=== PATIENT | female | born 1990 | race Caucasian/White ===

== ENCOUNTER 2016-10-05 02:54 | Emergency (ER) | payer OTHER ==
[2016-10-05 03:06] VITALS: BP 143/90
--- NOTE | 2016-10-05 03:37 | ERNOTE ---
Headache ER HPI - Narrative Date of Service: 10/05/16 - General Presenting Symptoms: headache Source: patient - Immun/Allergies/Home Medications Immunizations: IMMUNIZATION HX Immunizations Up to Date Yes History of Influenza Vaccine No Hx Pneumococcal Vaccination No Allergies/Adverse Reactions: Allergies No Known Allergies Allergy (Verified 10/05/16 03:06) Home Medications: HOME MEDICATIONS ALPRAZolam [Xanax] 1 mg PO TID PRN #30 tab 01/03/16 [Last Taken Unknown] Lamotrigine [Lamictal] 150 mg PO DAILY 01/03/16 [Last Taken Unknown] Metformin HCl [Glumetza] 500 mg PO BID 01/03/16 [Last Taken Unknown] risperiDONE [Risperdal] 1 mg PO HS 02/23/16 [Last Taken Unknown] Albuterol Sulfate [Ventolin Hfa] 1 - 2 puff IH Q4H PRN #1 inhaler 08/31/16 [ Last Taken Unknown] Gabapentin 300 mg PO HS 08/31/16 [Last Taken Unknown] Budesonide [Pulmicort] 1 mg IH BID 10/05/16 [Last Taken Unknown] - History of Present Illness Narrative: 25-year-old female states she tripped and fell forward striking her forehead about 24 hours ago. She states that her family had a difficult time waking her up in the morning and since that time she's had nausea visual disturbance and a severe headache. She states she often has a severe headache when her blood sugars are elevated and she lost her glucometer and therefore came to the emergency department early this morning concerned about her blood sugar and her headache Severity Maximum: Present: severe Severity-Currently: Present: severe Headache frequency: Present: frequent headaches Modifying Factors - (Improves): Reports: other - nothing Associated Symptoms: Reports: nausea, vision changes. Denies: vomiting Exacerbated by:: Reports: movement Review of Systems - Review of Systems Constitutional: Present: See HPI EYE: Present: see HPI ENT: Present: no symptoms reported Respiratory: Present: no symptoms reported Cardiology: Present: no symptoms reported Gastrointestinal/Abdominal: Present: no symptoms reported Genitourinary: Present: no symptoms reported Musculoskeletal: Present: no symptoms reported Skin: Present: no symptoms reported Neurological: Present: See HPI Endocrine: Present: no symptoms reported Hematologic/Lymphatic: Present: no symptoms reported Psych: Present: no symptoms reported - Patient's Past Medical History Patient History - Medical: Bipolar, Chronic Pain, Diabetes Type 2, Depression, Hypothyroidism, Obesity, Other Patient History - Cardiac/Respiratory: Asthma, Other Patient History - Cancer: No Hx of Cancer Patient History - Surgical Procedures: Ear Tubes, Other - Family History Mother Family History - Medical: Diabetes Type 2 Family History - Cardiac/Respiratory: Asthma, Hypertension Father Family History - Medical: History Unknown Family History - Cardiac/Respiratory: History Unknown - Social History Living Situations: home Smoking Status: Former smoker Patient requests Smoking Cessation Consult: No Initiate information on Smoking Cessation: No Alcohol Use: none Drug Use: none Physical Exam - Physical Exam General Appearance: Present: alert, moderate distress, obese - morbid obesity Eye Exam: Normal inspection: bilateral, PERRL: bilateral Ears, Nose, Throat: Present: normal ENT inspection, hearing grossly normal, normal pharynx Neck: Present: normal inspection, nontender Respiratory: Present: no respiratory distress, normal breath sounds, no accessory muscle use, chest nontender, lungs clear Cardiovascular/Chest: Present: regular rate, rhythm, no murmur, normal peripheral pulses Gastrointestinal/Abdominal: Present: normal bowel sounds, nontender, nondistended, soft, no organomegaly Rectal Exam: Present: deferred Back Exam: Present: normal inspection, normal range of motion, no CVA tenderness , no vertebral tenderness Extremity Exam: Present: normal inspection, non-tender, no edema, normal range of motion Neurological Exam: Present: alert, oriented, no motor/sensory deficits, normal cerebellar test Skin Exam: Present: normal color, warm/dry, other - small hematoma of forehead Lymphatic Exam: Present: no adenopathy ED Progress - Vital Signs Vital Signs: Vital Signs 10/05/16 10/05/16 02:55 03:00 Temperature 35.9 C L 36.5 C Pulse Rate 108 H Respiratory 20 Rate Blood Pressure 147/81 143/90 O2 Sat by Pulse 96 Oximetry - CT/Ultrasound CT/Ultrasound Narrative: CT head is negative - Progress/Reassessment Chief Complaint: Headache Departure Clinical Impression: Contusion of head Qualifiers: Encounter type: initial encounter Contusion of head detail: other part of head Qualified Code(s): S00.83XA - Contusion of other part of head, initial encounter Cephalgia Qualifiers: Headache type: post-traumatic Headache chronicity pattern: acute headache Intractability: not intractable Qualified Code(s): G44.319 - Acute post- traumatic headache, not intractable - Departure Disposition: Home self-care Condition: Fair Instructions: Head Injury, Adult, [id number]
[2016-10-05] MEDS ORDERED: KETOROLAC TROMETHAMINE 60 MG/2 ML VIAL IM ONE ×2 (03:44→03:45)
[2016-10-05] MEDS ORDERED: MAG HYDROX/ALUMINUM HYD/SIMETH 30 ML UDC PO ONE (03:44)
== END 2016-10-05 04:15 | disposition home or self-care (01) ==
LOC: ER 02:54
DX: S00.83XA Contusion of other part of head, initial encounter (principal); G44.319 Acute post-traumatic headache, not intractable; Z87.891 Personal history of nicotine dependence; W01.10XA Fall on same level from slipping, tripping and stumbling with subsequent striking against unspecified object, initial encounter; F32.9 Major depressive disorder, single episode, unspecified; J45.909 Unspecified asthma, uncomplicated

== ENCOUNTER 2016-12-27 10:27 | Emergency (ER) | payer OTHER ==
[2016-12-27 10:28] VITALS: BP 143/90
--- OUTSIDE RECORDS SUMMARY | 2016-12-27 12:03 | XMS REPORT | Continuity of Care Document ---
:1990 Author Organization [facility] ([facility]) Address [address] [place] [address] Phone [phone] Care Team Providers Name Role Phone [phone], Need To Check Primary Care Provider Unavailable Source Comments This disclosure is being made pursuant to the Care Everywhere program, applicable federal and state laws, and may not contain all informaitonavailable regarding this patient.[facility] ([facility]) Active Allergies and Adverse Reactions Allergen Noted Date Severity Reactions Comments No Known Allergies 01/22/2009 Current Medications Prescription Sig. Disp. Refills Start Date End Date Status albuterol (VENTOLIN Use 2 Puffs by Active HFA) 90 mcg/Actuation inhalation every 6 inhaler hours as needed. budesonide (PULMICORT Use 2 Puffs by 1 Inhaler 12 11/10/2013 Active FLEXHALER) 180 inhalation 2 times mcg/Inhalation daily. Indications: inhaler ASTHMA PREVENTION FLUoxetine 10 mg Take 50 mg by mouth Active capsule 2 times daily. ALPRAZolam 1 mg Take 1 mg by mouth Active tablet 3 times daily as needed. lamoTRIgine 150 mg Take 150 mg by Active tablet mouth daily. risperiDONE 2 mg Take 2 mg by mouth 2 12/25/2015 Active tablet at bedtime. metFORMIN 500 mg Take 500 mg by Active tablet mouth 3 times daily. Active Problems Problem Noted Date Diabetes mellitus 06/08/2014 Asthma 06/08/2014 Pediculosis capitis 11/16/2013 Disruption of wound, unspecified as to episode of care 11/14/2013 Cellulitis 11/12/2013 S/P repeat low transverse section 11/08/2013 Chorioamnionitis, delivered, current hospitalization 11/08/2013 PPROM at 32w2d in current 10/26/2013 History of loss to SIDS 10/26/2013 contraception 06/09/2013 Overview: - Patient desires Nexplanon - On review of records, she became with Implanon in place 07/2009. Bipolar disorder 05/05/2013 Hx of pre-eclampsia in prior , currently 05/05/2013 Hx of PPROM x2 complicated by IUFD x1 05/05/2013 Hx of total placenta previa 05/05/2013 History of delivery for FTP 05/05/2013 22 yo dated by 7-week ultrasound 05/05/2013 Hx of Hypothyroidism 01/20/2011 Overview: - TSH 3.12 at [facility] - Synthroid 50 mcg daily started 06/12.- patient never started this adn has had two normal TSH this so we will hold synthroid - Recheck TSH around 07/27. 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 Has 09/10/20102010 been offered injections and suppositories, not using either due to cost. H/o severe preeclampsia by oliguria in first 09/10/2010 01/22/2011 19 yo @ ___ by 9 week ultrasound, c/w 12 and 20 week 12/26/20092009 ultrasound. [place] of 05/15/2010. Complete previa on 12/26/2009 - follow up ultrasound in 12/05/2009 09/10/2010 weeks History of Section for arrest of dilation - 10/16/20092010 desire repeat s/p Pulmonary Valve Repair - 04/04. Needs SBE prophylaxis 04/26/20092010 Overview: 29 mm Epic bioprosthetic pulmonary valve replacement bilateral branch pulmonary arterioplasty with bovine pericardial patch, March 2009 cHTN: Labetalol 300 mg BID. Baseline PET labs WNL, 24 hour 04/23/20092010 urine 117 mg. Growth q 4 wks, NST at 32 wks Obesity - BMI 46.6 - to have regular growth scans starting at 01/31/2009 24 weeks, cannot assess fundal height Excessive growth affecting management of mother, 08/30/2007 01/31/2009 unspecified as to episode of care with other poor obstetric history(V23.49) 08/17/2007 01/31/2009 Supervision of other normal 05/05/2007 01/31/2009 Congenital cardiovascular disorders of mother, 04/13/2007 01/31/2009 antepartum(648.53) Maternal Tetralogy of Fallot, ECHO at 22 weeks was 03/24/20042010 normal. Maternal echo in 10/2010 stable compared to prior exam. Overview: With hypoplastic branch pulmonary arteries s/p repair. Pt had pulmonary bioprosthetic valve replacement and surgical revision of branch pulmonary arteries in March,. Most Recent Encounters Date Type Specialty Providers Description 12/17/2016 Hospital Encounter Pediatric [facility], Dx: Tetralogy of Cardiology PA-C Nanetteot Wm Jones MD 12/17/2016 Hospital Encounter Pediatric [facility] Quiroz, Chief Comp: Patient Cardiology PA-C Reported Reason For Wm Jones MD Visit 12/17/2016 Hospital Encounter Pediatric Crystal Quiroz, Dx: Tetralogy of Cardiology PA-C Nanetteot Wm Jones MD Immunizations Name Dates Previously Given Next Due Influenza, quadrivalent PF 08/03/2013 MMR 11/10/2013,01/21/2011,01/07/2010 Tdap 10/31/2013,01/21/2011 Social History Tobacco Use Types Packs/Day Years Used Date Current Some Day Smoker Cigarettes 8 1 Quit: 06/06/2010 Smokeless Tobacco: Never Used Tobacco Cessation:Counseling Given: No Comments: Alcohol Use Drinks/Week oz/Week Comments Yes 2 Glasses of wine 4.5 8-10 not with 1 Cans of beer 2 Standard drinks or equivalent Last Filed Vital Signs Vital Sign Reading Time Taken Blood Pressure 138/79 01/22/2016 9:51 AM CDT Pulse 80 01/22/2016 9:51 AM CDT Temperature 36.9 C (98.4 F) 01/22/2016 9:51 AM CDT Respiratory Rate 20 01/22/2016 9:51 AM CDT Height 1.668 m (5' 5.67") 01/22/2016 9:51 AM CDT Weight 161.2 kg (355 lb 6.1 oz) 01/22/2016 9:51 AM CDT Body Mass Index 57.94 01/22/2016 9:51 AM CDT Oxygen Saturation 96% 01/22/2016 9:51 AM CDT Plan of Care Health Maintenance Due Date Last Done Comments Hepatitis B Vaccine (1 of 3 - Primary 1990 Series) HPV Vaccine (1 of 3 - Female/Unknown 2001 3 Dose Series) Diabetic: Hdl 2008 Diabetic: Ldl 2008 DIABETIC: Microalbumin 2008 DIABETIC: Triglycerides 2008 Pneumococcal Vaccine (1 of 1 - 2009 PPSV23) DIABETIC: Cholesterol 01/17/2010 01/17/2009 Cervical Cancer Screening 08/27/2013 08/27/2010, 10/10/2009 DIABETIC: Hemoglobin A1C 05/13/2014 11/13/2013, 06/08/2013 DIABETIC: Foot Exam 06/08/2014 DIABETIC: Retinal Eye Exam 06/08/2014 Influenza Vaccine: Seasonal (#1) 04/27/2016 08/03/2013 Td Vaccine 10/31/2023 10/31/2013, 01/21/2011 Tdap Vaccine Completed 10/31/2013, 01/21/2011 MMR Vaccine Completed 11/10/2013, 01/21/2011, 01/07/2010 Results from Last 3 Months Not on file
--- NOTE | 2016-12-27 12:13 | ERNOTE ---
Date of Service: 12/27/16 Time Seen by Provider: 12/27/16 11:42 Stated Complaint: COUGH, BODY ACHES, Source: patient Exam Limitations: no limitations Immunizations: IMMUNIZATION HX Immunizations Up to Date Yes History of Influenza Vaccine No Hx Pneumococcal Vaccination No Allergies/Adverse Reactions: Allergies No Known Allergies Allergy (Verified 12/27/16 11:03) Home Medications: HOME MEDICATIONS ALPRAZolam [Xanax] 1 mg PO TID PRN #30 tab 01/03/16 [Last Taken Unknown] lamoTRIgine [Lamictal] 150 mg PO DAILY 01/03/16 [Last Taken Unknown] metFORMIN HCL [Glumetza] 500 mg PO BID 01/03/16 [Last Taken Unknown] risperiDONE [Risperdal] 1 mg PO HS 02/23/16 [Last Taken Unknown] Albuterol Sulfate [Ventolin Hfa] 1 - 2 puff IH Q4H PRN #1 inhaler 08/31/16 [ Last Taken Unknown] Gabapentin 300 mg PO HS 08/31/16 [Last Taken Unknown] Budesonide [Pulmicort] 1 mg IH BID 10/05/16 [Last Taken Unknown] Albuterol Sulfate [Albuterol Sulfate 2.5 MG/3 ML] 2.5 mg IH Q4H #100 vial.neb [Last Taken Unknown] Doxycycline Monohydrate 100 mg PO BID #20 tablet 12/27/16 [Last Taken Unknown] predniSONE [Prednisone] 3 tab PO DAILY #9 tab 12/27/16 [Last Taken Unknown] - History of Present Ilness Narrative: Pt. comes in with c/o cough, chest congestion, nasal congestion, throat and ear pain. Pt. denies any fever, NVD, alleviating factors but does state that she has increased SOB, despite using her inhaler and OTC cough and cold medications. Review of Systems - Review of Systems Constitutional: Present: chills, fatigue, malaise. Absent: fever, weakness EYE: Present: no symptoms reported ENT: Present: ear pain, nose congestion. Absent: sore throat Respiratory: Present: shortness of breath, cough, wheezing. Absent: orthopnea Cardiology: Present: chest pain - with cough only. Absent: palpitations, edema Gastrointestinal/Abdominal: Present: no symptoms reported. Absent: nausea, vomiting, diarrhea Genitourinary: Present: no symptoms reported Musculoskeletal: Present: no symptoms reported. Absent: back pain, joint pain Skin: Present: no symptoms reported. Absent: rash, change in color Neurological: Present: no symptoms reported. Absent: headache, dizziness/light- headedness, numbness, tingling All Other Systems: All systems neg except as marked - Patient's Past Medical History Patient History - Medical: Anxiety, Bipolar, Chronic Pain, Diabetes Type 2, Depression, Hypothyroidism, Obesity Patient History - Cardiac/Respiratory: Asthma, Bronchitis, Pneumonia Patient History - Cancer: No Hx of Cancer Patient History - Surgical Procedures: Ear Tubes, Other Patient History - Other: None LMP (females 10-50): other - Family History Mother Family History - Medical: Diabetes Type 2 Family History - Cardiac/Respiratory: Asthma, Hypertension Father Family History - Medical: History Unknown Family History - Cardiac/Respiratory: History Unknown - Social History Living Situations: home Abuse History: No History of abuse Psych History: Hx of Anxiety, Hx of Depression, Hx of Bipolar Disorder Alcohol Use: none Drug Use: none - Immunizations Immunizations Up to Date: Yes Hx Pneumococcal Vaccination: No History of Influenza Vaccine: No Physical Exam - Physical Exam General Appearance: Present: wd/wn, alert, no apparent distress Eye Exam: Normal inspection: bilateral, PERRL: bilateral, EOMI: bilateral Ears, Nose, Throat: Present: normal except -, nasal congestion, sinus pain/ drainage - frontal, tonsillar exudate - clear. Absent: abnormal TM (R), abnormal TM (L), pharyngeal erythema Neck: Present: normal inspection, nontender. Absent: lymphadenopathy (R), lymphadenopathy (L) Respiratory: Present: no respiratory distress, normal breath sounds, no accessory muscle use, chest nontender, lungs clear. Absent: rales, rhonchi, wheezing Cardiovascular/Chest: Present: regular rate, rhythm, no murmur, normal peripheral pulses Gastrointestinal/Abdominal: Present: normal bowel sounds, nontender, nondistended, soft, no organomegaly Back Exam: Present: normal inspection, normal range of motion, no CVA tenderness , no vertebral tenderness Extremity Exam: Present: normal inspection Neurological Exam: Present: alert, oriented, normal mood/affect, no motor/ sensory deficits Skin Exam: Present: warm/dry, pallor. Absent: skin rash ED Progress - Vital Signs Patient's Vital Signs:: I have reviewed the patient's vital signs. Vital Signs: Vital Signs 12/27/16 10:58 Temperature 36.2 C L Pulse Rate 87 Respiratory 16 Rate O2 Sat by Pulse 94 Oximetry - X-Ray X-Ray #1 X-Ray: chest Interpretation: Interp. by me X-ray Comments: bronchial cuffing no consolidation, stable cardiomegaly - Progress/Reassessment Chief Complaint: Upper Respiratory Symptoms Departure - Departure Clinical Impression: Asthma exacerbation Acute bronchitis Qualifiers: Bronchitis organism: other organism Qualified Code(s): J20.8 - Acute bronchitis due to other specified organisms Sinusitis Qualifiers: Sinusitis location: frontal Chronicity: acute Recurrence: non-recurrent Qualified Code(s): J01.10 - Acute frontal sinusitis, unspecified Disposition: Home self-care Condition: Good Instructions: Sinusitis, Adult, [id number], Acute Bronchitis, [id number], Asthma, Adult, [id number] Additional Instructions: Please use nebulizer every four hours as neded take antibiotics and steroids as ordered and follow up with primary provider in 2-3 days. Prescriptions: Albuterol Sulfate [Albuterol Sulfate 2.5 MG/3 ML] 2.5 mg IH Q4H #100 vial.neb Doxycycline Monohydrate 100 mg PO BID #20 tablet predniSONE [Prednisone] 3 tab PO DAILY #9 tab
== END 2016-12-27 12:55 | disposition home or self-care (01) ==
LOC: ER 10:27
DX: J45.901 Unspecified asthma with (acute) exacerbation (principal); J20.8 Acute bronchitis due to other specified organisms; J01.10 Acute frontal sinusitis, unspecified

== ENCOUNTER 2017-05-30 04:41 | Emergency (ER) | payer OTHER ==
[2017-05-30 04:58] VITALS: BP 141/90
[2017-05-30] MEDS ORDERED: HYDROcodone/ACETAMINOPHEN 1 EACH TABLET PO ONE (05:33)
[2017-05-30] MEDS ORDERED: HYDROcodone/ACETAMINOPHEN 1 EACH TABLET ONE (05:44)
--- NOTE | 2017-05-30 05:45 | ERNOTE ---
Back Pain ER HPI Date of Service: 05/30/17 Time Seen by Provider: 05/30/17 05:04 Immunizations: IMMUNIZATION HX Immunizations Up to Date Yes History of Influenza Vaccine No Hx Pneumococcal Vaccination No Allergies/Adverse Reactions: Allergies No Known Allergies Allergy (Verified 05/30/17 05:02) Home Medications: HOME MEDICATIONS ALPRAZolam [Xanax] 1 mg PO TID PRN #30 tab 01/03/16 [Last Taken Unknown] lamoTRIgine [Lamictal] 150 mg PO DAILY 01/03/16 [Last Taken Unknown] metFORMIN HCL [Glumetza] 500 mg PO BID 01/03/16 [Last Taken Unknown] risperiDONE [Risperdal] 1 mg PO HS 02/23/16 [Last Taken Unknown] Albuterol Sulfate [Ventolin Hfa] 1 - 2 puff IH Q4H PRN #1 inhaler 08/31/16 [ Last Taken Unknown] Gabapentin 300 mg PO HS 08/31/16 [Last Taken Unknown] Budesonide [Pulmicort] 1 mg IH BID 10/05/16 [Last Taken Unknown] Albuterol Sulfate [Albuterol Sulfate 2.5 MG/3 ML] 2.5 mg IH Q4H #100 vial.neb [Last Taken Unknown] Doxycycline Monohydrate 100 mg PO BID #20 tablet 12/27/16 [Last Taken Unknown] predniSONE [Prednisone] 3 tab PO DAILY #9 tab 12/27/16 [Last Taken Unknown] HYDROcodone/ACETAMINOPHEN [[place] 5-325] 1 each PO Q4H PRN #10 tablet 05/30/17 [ Last Taken Unknown] Narrative: This is a 26-year-old female who comes to the emergency department complaining of mid thoracic and lumbar back pain. The patient states that her mother has been in the hospital recently and for the last week she has been sleeping in chairs at her mother's bedside. She says that over the last few days she developed increasing pain in her back. She denied any recent trauma. She said that the pain was primarily in the mid thoracic and upper lumbar. No radiation to the buttocks. No muscular weakness. No tingling or numbness. No loss of control of bowel or bladder. She is using ibuprofen and Tylenol to help with the symptoms. 2 days ago, the day that the patient came home from the hospital and started sleeping in her own bed, she apparently stumbled on the stairs as she was tearing down laundry and says that she landed on her buttocks and then slid down the stairs. She did not have any significant pain initially but noticed over the next 24 hours that she developed lower lumbar pain as well as worsening of the thoracic pain. It's the same type of pain, a dull aching pain with occasional sharp stabs. She does not have any new neurological symptoms after this fall either. She again had no pain initially after the fall other than her previous pain from sleeping in the chairs, but after 24 hours ago much worse. The patient denies any other complaints Review of Systems - Review of Systems Constitutional: Present: no symptoms reported EYE: Present: no symptoms reported ENT: Present: no symptoms reported Respiratory: Present: no symptoms reported Cardiology: Present: no symptoms reported Gastrointestinal/Abdominal: Present: no symptoms reported Genitourinary: Present: no symptoms reported Musculoskeletal: Present: See HPI, back pain, muscle pain, muscle stiffness Skin: Present: no symptoms reported Neurological: Present: no symptoms reported Endocrine: Present: no symptoms reported Hematologic/Lymphatic: Present: no symptoms reported Psych: Present: no symptoms reported All Other Systems: All systems neg except as marked - Patient's Past Medical History Patient History - Medical: Anxiety, Bipolar, Chronic Pain, Diabetes Type 2, Depression, Hypothyroidism, Obesity Patient History - Cardiac/Respiratory: Asthma, Bronchitis, Pneumonia Patient History - Cancer: No Hx of Cancer Patient History - Surgical Procedures: Ear Tubes, Other Patient History - Other: None - Family History Mother Family History - Medical: Diabetes Type 2 Family History - Cardiac/Respiratory: Asthma, Hypertension Father Family History - Medical: History Unknown Family History - Cardiac/Respiratory: History Unknown - Social History Living Situations: home Abuse History: No History of abuse Psych History: Hx of Anxiety, Hx of Depression, Hx of Bipolar Disorder Smoking Status: Never smoker Have you smoked in the past 12 months: No Alcohol Use: none Drug Use: none - Immunizations Immunizations Up to Date: Yes Hx Pneumococcal Vaccination: No History of Influenza Vaccine: No Physical Exam - Physical Exam General Appearance: Present: wd/wn, alert, no apparent distress Head Exam: Present: normal inspection, no evidence of injury Eye Exam: Normal inspection: bilateral, PERRL: bilateral, EOMI: bilateral Ears, Nose, Throat: Present: normal ENT inspection, normal pharynx Neck: Present: normal inspection, nontender, other - no paraspinal tenderness no midline tenderness for range of motion Respiratory: Present: no respiratory distress, normal breath sounds, lungs clear Cardiovascular/Chest: Present: regular rate, rhythm, no murmur Gastrointestinal/Abdominal: Present: normal bowel sounds, soft Back Exam: Present: normal range of motion, no CVA tenderness. Absent: other - paraspinal mid to lower thoracic pain as well as upper paraspinal lumbar pain. She has a single area in her mid thoracic with very mild discomfort to palpation. There is no step-off. The patient has no other midline pain. She is difficult to assess for spasms of the musculature due to significant obesity. Extremity Exam: Present: normal inspection, non-tender, no edema Neurological Exam: Present: alert, oriented, normal mood/affect, no motor/ sensory deficits Skin Exam: Present: normal color, warm/dry Lymphatic Exam: Present: no adenopathy ED Progress - Vital Signs Patient's Vital Signs:: I have reviewed the patient's vital signs. Vital Signs: Vital Signs 05/30/17 04:41 Temperature 36.6 C Pulse Rate 98 Respiratory 16 Rate Blood Pressure 141/90 O2 Sat by Pulse 94 Oximetry - Progress/Reassessment Chief Complaint: Back Pain Plan - Plan Plan: The patient has paraspinal pain which sounds muscular which started after sleeping in a strange position in a place that was not her bed. Further exacerbating this the patient then had a fall. It is important to note that the patient had discomfort in the midline of the midthoracic prior to the fall. She had no increase or change in her pain after the fall for the first 12-24 hours. It was only later that she started having increasing spasms. The patient has no neurologic symptoms. I do not believe that blood testing or urinalysis is going to be of any benefit. She denies any urinary symptoms, has no fever. I do not believe that plain x-rays are of utility in this case as her symptoms are paraspinal with the exception of the single spot in the mid to lower thoracic midline. There was no trauma prior to the patient developing this pain. Certainly if she is not getting better as expected in the next few days, radiologic testing may be indicated however plain films are very unlikely to demonstrate any abnormalities. I have discussed this with the patient and she is in agreement. She does not believe x-rays are needed. He does not believe other testing is needed. She was simply hoping to get some pain relief so that she could sleep. She has 4 children and her works so she has been essentially running herself ragged trying to take care of everyone. Departure Clinical Impression: Lumbago - Departure Disposition: Home self-care Condition: Stable Instructions: Back Exercises, Mid-Back Strain With Rehab[facility] Additional Instructions: As we have discussed, I do not believe that x-rays or blood or urine testing is necessary here tonight. His symptoms started after he was sleeping and chairs. It is therefore not beyond expectation that your symptoms would be better when you get back into sleeping in a normal bed. He did not have a significant increase in the pain immediately after the fall, was only after 24 hours or so when the muscles started to respond and spasm up further. I suspect that with some gentle exercises, stretching, moving around as well as sleeping in her own bed and getting a good night's sleep in her muscles will start to improve. Heating pads or warm showers or baths can be of assistance. Avoid using cold as this will make spasms worse. Take the prescribed medicine to help with severe pain. No driving or operating machinery while taking this. He should take ibuprofen, 3 of the 200 mg tablets, every 6 hours for at least 5 days. This is to help with inflammation. He have an appointment with her doctor later on this week. I want you to let him know that you're seen in the emergency department and if he was still having symptoms he can order the appropriate radiologic testing. Next Certainly if you develop numbness, tingling, muscular weakness, loss of control of bowel or bladder, or any new concerning symptoms she should return to the ER. Prescriptions: HYDROcodone/ACETAMINOPHEN [[place] 5-325] 1 each PO Q4H PRN #10 tablet PRN Reason: Pain
== END 2017-05-30 05:48 | disposition home or self-care (01) ==
LOC: ER 04:41
DX: M54.5 Low back pain (principal)

== ENCOUNTER 2017-06-28 08:12 | Emergency (ER) | payer OTHER ==
[2017-06-28 08:24] VITALS: BP 150/91
[2017-06-28] MEDS ORDERED: KETOROLAC TROMETHAMINE 60 MG/2 ML VIAL IM ONE ×2 (08:37→08:41)
--- NOTE | 2017-06-28 08:49 | ERNOTE ---
Back Pain ER HPI Presenting Symptoms: injury/pain to back Time Seen by Provider: 06/28/17 08:27 Source: patient Exam Limitations: no limitations Immunizations: IMMUNIZATION HX Immunizations Up to Date Yes History of Influenza Vaccine Yes Hx Pneumococcal Vaccination No Allergies/Adverse Reactions: Allergies No Known Allergies Allergy (Verified 06/28/17 08:24) Home Medications: HOME MEDICATIONS ALPRAZolam [Xanax] 1 mg PO TID PRN #30 tab 01/03/16 [Last Taken Unknown] lamoTRIgine [Lamictal] 150 mg PO DAILY 01/03/16 [Last Taken Unknown] metFORMIN HCL [Glumetza] 500 mg PO BID 01/03/16 [Last Taken Unknown] risperiDONE [Risperdal] 1 mg PO HS 02/23/16 [Last Taken Unknown] Albuterol Sulfate [Ventolin Hfa] 1 - 2 puff IH Q4H PRN #1 inhaler 08/31/16 [ Last Taken Unknown] Gabapentin 300 mg PO HS 08/31/16 [Last Taken Unknown] Budesonide [Pulmicort] 1 mg IH BID 10/05/16 [Last Taken Unknown] Albuterol Sulfate [Albuterol Sulfate 2.5 MG/3 ML] 2.5 mg IH Q4H #100 vial.neb [Last Taken Unknown] predniSONE [Prednisone] 3 tab PO DAILY #9 tab 12/27/16 [Last Taken Unknown] Cyclobenzaprine HCl [Flexeril] 10 mg PO TID PRN #30 tab 06/28/17 [Last Taken Unknown] Ibuprofen [Motrin] 800 mg PO TID PRN #60 tab 06/28/17 [Last Taken Unknown] Narrative: Patient has had mild pain involving most of her spine for a bout a week. Yesterday the pain got severe in her right lower thoracic area. It has radiated around to the front a couple of times. She is not aware of any injuries but thinks that it might be caused by sleeping on the couch one night. Patient is also obese and has a history of chronic pain Timing: Reports: getting worse Quality/Severity: Reports: sharpness Location of pain: Reports: mid back, other Activities at Onset: Reports: none Recent Injury?: Reports: no Modifying Factors - (Improves): Reports: other - pain meds Modifying Factors - (Worsens): Reports: cough/deep breaths Associated Symptoms: Denies: fever/chills, constipation/incontinence, problems urinating, numbess/weakness in legs Prior Treament: Reports: similar symptoms before. Denies: recently seen Review of Systems - Review of Systems Constitutional: Absent: recent illness, fever ENT: Absent: nose congestion, sore throat Respiratory: Absent: shortness of breath, other Gastrointestinal/Abdominal: Absent: nausea, abdominal pain Genitourinary: Present: no symptoms reported Musculoskeletal: Present: See HPI Neurological: Absent: headache, weakness, numbness - Patient's Past Medical History Patient History - Medical: Anxiety, Bipolar, Chronic Pain, Diabetes Type 2, Depression, Hypothyroidism, Obesity Patient History - Cardiac/Respiratory: Asthma, Bronchitis, Pneumonia Patient History - Cancer: No Hx of Cancer Patient History - Surgical Procedures: Ear Tubes, Other Patient History - Other: None - Family History Mother Family History - Medical: Diabetes Type 2 Family History - Cardiac/Respiratory: Asthma, Hypertension Father Family History - Medical: History Unknown Family History - Cardiac/Respiratory: History Unknown - Social History Living Situations: home Abuse History: No History of abuse Psych History: Hx of Anxiety, Hx of Depression, Hx of Bipolar Disorder Smoking Status: Never smoker Alcohol Use: none Drug Use: none - Immunizations Immunizations Up to Date: Yes Hx Pneumococcal Vaccination: No History of Influenza Vaccine: Yes Physical Exam - Physical Exam General Appearance: Present: wd/wn, alert, obese Respiratory: Present: no respiratory distress, normal breath sounds, no accessory muscle use, chest nontender, lungs clear Cardiovascular/Chest: Present: regular rate, rhythm, no murmur Back Exam: Present: normal inspection, normal range of motion, no CVA tenderness , no vertebral tenderness, other - tenderness righ paraspinal lower thoracic area Extremity Exam: Present: normal inspection, normal range of motion Neurological Exam: Present: alert, oriented, normal mood/affect, no motor/ sensory deficits Skin Exam: Present: normal color, warm/dry ED Progress - Vital Signs Patient's Vital Signs:: I have reviewed the patient's vital signs. Vital Signs: Vital Signs 06/28/17 08:21 Temperature 36.4 C L Pulse Rate 83 Respiratory 16 Rate Blood Pressure 150/91 O2 Sat by Pulse 96 Oximetry - Progress/Reassessment Chief Complaint: Back Pain Departure Clinical Impression: Back pain Qualifiers: Back pain location: thoracic back pain Chronicity: acute Back pain laterality: right Qualified Code(s): M54.6 - Pain in thoracic spine - Departure Disposition: Home self-care Condition: Good Instructions: Back Pain, Adult, [id number] Additional Instructions: follow up with your doctor in [place] as scheduled in a week Prescriptions: Cyclobenzaprine HCl [Flexeril] 10 mg PO TID PRN #30 tab PRN Reason: MUSCLE SPASMS Ibuprofen [Motrin] 800 mg PO TID PRN #60 tab PRN Reason: Pain
== END 2017-06-28 08:47 | disposition home or self-care (01) ==
LOC: ER 08:12
DX: M54.6 Pain in thoracic spine (principal); F31.9 Bipolar disorder, unspecified; J45.909 Unspecified asthma, uncomplicated; E11.9 Type 2 diabetes mellitus without complications; F41.9 Anxiety disorder, unspecified; Z96.22 Myringotomy tube(s) status

== ENCOUNTER 2017-06-29 02:56 | Emergency (ER) | payer OTHER ==
--- NOTE | 2017-06-29 03:15 | ERNOTE ---
Back Pain ER HPI Presenting Symptoms: injury/pain to back, other Time Seen by Provider: 06/29/17 03:11 Immunizations: IMMUNIZATION HX Immunizations Up to Date Yes History of Influenza Vaccine Yes Hx Pneumococcal Vaccination No Allergies/Adverse Reactions: Allergies No Known Allergies Allergy (Verified 06/29/17 03:04) Home Medications: HOME MEDICATIONS ALPRAZolam [Xanax] 1 mg PO TID PRN #30 tab 01/03/16 [Last Taken Unknown] lamoTRIgine [Lamictal] 150 mg PO DAILY 01/03/16 [Last Taken Unknown] metFORMIN HCL [Glumetza] 500 mg PO BID 01/03/16 [Last Taken Unknown] risperiDONE [Risperdal] 1 mg PO HS 02/23/16 [Last Taken Unknown] Albuterol Sulfate [Ventolin Hfa] 1 - 2 puff IH Q4H PRN #1 inhaler 08/31/16 [ Last Taken Unknown] Gabapentin 300 mg PO HS 08/31/16 [Last Taken Unknown] Budesonide [Pulmicort] 1 mg IH BID 10/05/16 [Last Taken Unknown] Albuterol Sulfate [Albuterol Sulfate 2.5 MG/3 ML] 2.5 mg IH Q4H #100 vial.neb [Last Taken Unknown] Cyclobenzaprine HCl [Flexeril] 10 mg PO TID PRN #30 tab 06/28/17 [Last Taken 11/13 23:00] Nabumetone 750 mg PO BID #20 tablet 06/29/17 [Last Taken Unknown] tiZANidine HCL [Tizanidine HCl] 2 mg PO TID PRN #30 cap 06/29/17 [Last Taken Unknown] Narrative: 3-4 days ago pt slept on the couch and began to have back pain after that. She was in this ED yesterday and seen by Dr. Garcia and given flexeril. She states it did not help much, it did help her sleep for 3-4 hours but that is all. She saw Dr. Houston last month for the same complaint with the same story, that she slept wrong on the couch and now her back hurts. Timing: Reports: getting worse Quality/Severity: Reports: moderate, severe, cramping Location of pain: Reports: mid back, no radiation Activities at Onset: Reports: sleep Recent Injury?: Reports: no Modifying Factors - (Improves): Reports: nothing Modifying Factors - (Worsens): Reports: movement flexion Prior Treament: Reports: recently seen, treated by physician, similar symptoms before Review of Systems - Review of Systems Constitutional: Absent: recent illness EYE: Present: no symptoms reported ENT: Present: no symptoms reported Respiratory: Absent: shortness of breath, cough Cardiology: Present: no symptoms reported Gastrointestinal/Abdominal: Present: nausea - with increased pain Genitourinary: Present: no symptoms reported Musculoskeletal: Present: no symptoms reported Skin: Present: no symptoms reported Neurological: Present: numbness, tingling - in her arm that is chronic Endocrine: Present: no symptoms reported Hematologic/Lymphatic: Present: no symptoms reported Psych: Present: no symptoms reported - Patient's Past Medical History Patient History - Medical: Anxiety, Bipolar, Chronic Pain, Diabetes Type 2, Depression, Hypothyroidism, Obesity Patient History - Cardiac/Respiratory: Asthma, Bronchitis, Pneumonia Patient History - Cancer: No Hx of Cancer Patient History - Surgical Procedures: Ear Tubes, Other Patient History - Other: None LMP (females 10-50): unknown - Family History Mother Family History - Medical: Diabetes Type 2 Family History - Cardiac/Respiratory: Asthma, Hypertension Father Family History - Medical: History Unknown Family History - Cardiac/Respiratory: History Unknown - Social History Living Situations: home Abuse History: No History of abuse Psych History: Hx of Anxiety, Hx of Depression, Hx of Bipolar Disorder, Current tx/ever been on anti-depressants or anti-anxiety meds Smoking Status: Former smoker Alcohol Use: none Drug Use: marijuana - Immunizations Immunizations Up to Date: Yes Hx Pneumococcal Vaccination: No History of Influenza Vaccine: Yes Physical Exam - Physical Exam General Appearance: Present: wd/wn, alert, no apparent distress Head Exam: Present: normal inspection, no evidence of injury Eye Exam: Normal inspection: bilateral Neck: Present: normal inspection, nontender Respiratory: Present: no respiratory distress, no accessory muscle use Back Exam: Present: no vertebral tenderness Extremity Exam: Present: normal inspection, no edema Neurological Exam: Present: alert, oriented, normal mood/affect, no motor/ sensory deficits Skin Exam: Present: normal color, warm/dry Lymphatic Exam: Present: no adenopathy ED Progress - Results and Orders Patient's Lab Results:: I have reviewed the patient's lab results. Results and Orders: Laboratory Tests 06/29/17 03:38 Urine Color Yellow Urine Appearance Clear Urine pH 6.0 Urine Protein Negative Urine Glucose (UA) Negative Urine Ketones Negative Urine Blood Negative Urine Nitrate Negative Urine Bilirubin Negative Urine Urobilinogen Normal Ur Leukocyte Esterase Negative Urine RBC None seen Urine WBC 0-5 Ur Epithelial Cells 5-10 H Amorphous Sediment Few - 1+ Urine Bacteria 1+ H Urine Culture Comments No culture indicated - Vital Signs Patient's Vital Signs:: I have reviewed the patient's vital signs. Vital Signs: Vital Signs 06/29/17 02:59 Temperature 36.0 C L Pulse Rate 87 Respiratory 24 H Rate Blood Pressure 157/98 O2 Sat by Pulse 96 Oximetry - Progress/Reassessment Chief Complaint: Back Pain Departure Clinical Impression: Muscle spasm of back - Departure Disposition: Home Follow Up Needed Condition: Good Instructions: Thoracic Strain, [id number], Back Pain, Adult Additional Instructions: use the prescribed medication you have been given and follow up with your regular provider for further treatment. Prescriptions: Nabumetone 750 mg PO BID #20 tablet tiZANidine HCL [Tizanidine HCl] 2 mg PO TID PRN #30 cap PRN Reason: muscle spasms
[2017-06-29 03:59] LABS: Urine Bilirubin Negative (NEGATIVE); Urine Blood Negative /ul (NEGATIVE); Urine Ketone Negative (NEGATIVE); Urine Nitrite Negative (NEGATIVE); Urine Protein Negative (NEGATIVE); Urine Urobilinogen Normal (NORMAL)
[2017-06-29 04:03] LABS: Urine Appearance Clear; Urine Color Yellow
[2017-06-29 04:04] LABS: Urine Amorphous Sediment Few - 1+ (NONE-FEW); Urine Bacteria 1+; Urine RBC None Seen /hpf (0-5); Urine WBC 0-5 /hpf (0-5)
[2017-06-29 04:19] VITALS: BP 130/91
== END 2017-06-29 04:34 | disposition home or self-care (01) ==
LOC: ER 02:56
DX: M62.830 Muscle spasm of back (principal)

== ENCOUNTER 2017-07-08 11:11 | Emergency (ER) | payer OTHER ==
[2017-07-08] MEDS ORDERED: KETOROLAC TROMETHAMINE 60 MG/2 ML VIAL IM ONE ×2 (11:20→11:23)
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
[2017-07-08] MEDS ORDERED: oxyCODONE HCL/ACETAMINOPHEN 1 TAB TABLET PO ONE (13:20)
[2017-07-08] MEDS ORDERED: ACETAMINOPHEN 325 MG TABLET PO ONE (13:20)
[2017-07-08] MEDS ORDERED: oxyCODONE HCL/ACETAMINOPHEN 1 TAB TABLET ONE (13:23)
[2017-07-08] MEDS ORDERED: ACETAMINOPHEN 325 MG TABLET ONE (13:24)
[2017-07-08 14:21] VITALS: BP 149/73
== END 2017-07-08 13:29 | disposition home or self-care (01) ==
LOC: ER 11:11
DX: S00.83XA Contusion of other part of head, initial encounter (principal); S02.2XXA Fracture of nasal bones, initial encounter for closed fracture; V49.59XA Passenger injured in collision with other motor vehicles in traffic accident, initial encounter; Y92.410 Unspecified street and highway as the place of occurrence of the external cause; F41.8 Other specified anxiety disorders; G89.29 Other chronic pain; F31.70 Bipolar disorder, currently in remission, most recent episode unspecified; E03.9 Hypothyroidism, unspecified